=== PATIENT | male | born 1960 | race Hispanic/Latino ===

== ENCOUNTER 2018-01-16 04:18 | Inpatient (IN) | payer BC ==
[~2018-01-16] VITALS: Ht 154.9 cm; Wt 79.8 kg
[~2018-01-16 04:18] MED LIST: AVODART0.5 MG; FLOMAX0.4 MG PO; SIMVASTATIN20 MG; ZOCOR20 MG PO
[2018-01-16] MEDS ORDERED: SODIUM CHLORIDE 0.9% 1000ML 1,000 ML IV STA (04:31)
[2018-01-16] MEDS ORDERED: MORPHINE SULFATE INJ 4 MG/ML INJ IV STA (04:41)
[2018-01-16] MEDS ORDERED: FAMOTIDINE 20 MG/2 ML VIAL IV ONE (04:45)
[2018-01-16] MEDS ORDERED: ONDANSETRON HCL INJ 2 MG/ML VIAL IV ONE (04:45)
[2018-01-16] MEDS ORDERED: DIATRIZOATE MEGL/DIATRIZOA SOD 30 ML BTL PO ONE (04:55)
[2018-01-16] MEDS: ENALAPRILAT IV INJ 1.25 MG/ML VIAL IV STA ×2 (05:01→05:39)
[2018-01-16 05:05] LABS: BASOPHILS # (AUTO) 0.1 (0.0-0.1); BASOPHILS % 0.4 % (0.0-1.0); EOSINOPHILS # (AUTO) 0.1 (0.0-0.4); EOSINOPHILS % 0.5 % (0.0-6.0); HEMATOCRIT 43.3 % (38.2-49.6); HEMOGLOBIN 14.8 g/dL (14.0-18.0); LYMPHOCYTES % 17.8 % (18.0-39.1); MEAN CORPUSCULAR HEMOGLOBIN 29.8 pg (28-32); MEAN CORPUSCULAR HGB CONC 34.2 g/dL (31-35); MEAN CORPUSCULAR VOLUME 87.1 fL (81-99); MONOCYTES # (AUTO) 1.3 (0.2-0.8); MONOCYTES % 7.6 % (4.4-11.3); NEUTROPHILS # (AUTO) 12.4 (2.1-6.9); NEUTROPHILS % 73.2 % (38.7-80.0); PLATELET COUNT 306 x10e3/uL (140-360); RED BLOOD COUNT 4.97 x10e6/uL (4.3-5.7); RED CELL DISTRIBUTION WIDTH 12.9 % (11.7-14.4)
[2018-01-16 05:07] LABS: CLARITY,URINE CLEAR (CLEAR); COLOR,URINE YELLOW (YELLOW); LEUKOCYTE ESTERASE ,URINE NEGATIVE (NEGATIVE)
[2018-01-16 05:08] LABS: BILIRUBIN,URINE NEGATIVE (NEGATIVE); KETONES,URINE NEGATIVE (NEGATIVE); PROTEIN,URINE DIPSTICK NEGATIVE (NEGATIVE); URINE UROBILINOGEN 0.2 mg/dL (0.2 - 1)
[2018-01-16 05:09] LABS: RBC,URINE 0-5 /HPF (0-5); WBC,URINE (MAN) 0-5 /HPF (0-5)
[2018-01-16 05:10] LABS: EPITHELIAL CELLS,URINE FEW /LPF; NITRITE,URINE NEGATIVE (NEGATIVE)
[2018-01-16 05:20] LABS: ALANINE AMINOTRANSFERASE 31 IU/L (0-55); ALBUMIN/GLOBULIN RATIO 1.2 (0.8-2.0); ALKALINE PHOSPHATASE 57 IU/L (40-150); AMYLASE 36 U/L (25-125); ANION GAP 14.5 mmol/L (8-16); BLOOD UREA NITROGEN 12 mg/dL (7-26); BUN/CREATININE RATIO 12 (6-25); CARBON DIOXIDE 28 mmol/L (22-29); CHLORIDE 104 mmol/L (98-107); CREATININE, SERUM 0.98 mg/dL (0.72-1.25); EST GLOMERULAR FILTRATION RATE > 60 ML/MIN (60-); GLUCOSE 100 mg/dL (74-118); LIPASE 15 U/L (8-78); POTASSIUM 4.5 mmol/L (3.5-5.1); SODIUM 142 mmol/L (136-145)
[2018-01-16] MEDS ORDERED: FINASTERIDE5 MG PO (06:10)
[2018-01-16] MEDS ORDERED: SODIUM CHLORIDE 0.9% 50ML 50 ML ONE (06:13)
[2018-01-16] MEDS ORDERED: IOPAMIDOL 370 MG/ML 200 ML INFUS..BTL INJ ONE (06:13)
--- NOTE | 2018-01-16 06:40 | Diagnostic Imaging Report ---
EXAM: CT ABDOMEN/PELVIS W DATE: 01/16/2018 4:41 AM INDICATION: \S\look for appy, diverticulitis,sbo, panreatitis, hernia, rup \[id number] \S\0602 \S\Y COMPARISON: None TECHNIQUE: The abdomen and pelvis were scanned using a multidetector helical scanner. Coronal and sagittal reformations were obtained. CT low dose techniques were utilized, as applicable. IV Contrast: 100 ml Isovue 300/370 FINDINGS: LOWER THORAX: No consolidations LIVER/BILIARY: Homogeneous enhancing 1.2 cm right liver lesion on image 29 and 9 mm caudate lesion on image 19. No ductal dilatation. GALLBLADDER: Cholelithiasis. SPLEEN: Unremarkable PANCREAS: Unremarkable ADRENALS: No nodules KIDNEYS: There is a too small to characterize right inferior renal hypodensity, likely a cyst. No hydronephrosis. GI TRACT: Diverticulosis with marked short segment wall thickening of the distal sigmoid colon and inflammatory changes. Focal 2.4 x 1.2 cm area of fluid and air on image 61 may reflect a large diverticulum or contained fluid collection. VESSELS: Severe atherosclerotic changes. PERITONEUM/RETROPERITONEUM: No free air or fluid LYMPH NODES: No lymphadenopathy REPRODUCTIVE ORGANS/BLADDER: Unremarkable BONES: No suspicious bone lesions. IMPRESSION: 1. Acute sigmoid diverticulitis. Large perisigmoid diverticulum versus contained small abscess. Recommend colonoscopy once the acute episode has resolved. 2. Two homogeneously enhancing liver lesions, which likely reflect FNH is or adenomas. Recommend nonemergent follow-up MRI liver mass protocol for confirmation. Signed by: Dr Lydia Mercedes MD on 01/16/2018 6:37 AM
[2018-01-16] MEDS ORDERED: PROMETHAZINE 25MG/ NS 50ML (IV) IV PRN (07:00)
[2018-01-16] MEDS ORDERED: ENALAPRILAT IV INJ 1.25 MG/ML VIAL IV PRN (07:00)
[2018-01-16] MEDS ORDERED: DIPHENHYDRAMINE HCL INJ 50 MG/ML VIAL IV PRN (07:00)
[2018-01-16] MEDS ORDERED: ZOLPIDEM TARTRATE 5 MG TAB PO PRN (07:00)
[2018-01-16] MEDS ORDERED: ACETAMINOPHEN 325 MG TAB PO PRN (07:00)
[2018-01-16] MEDS: FAMOTIDINE 20 MG/2 ML VIAL IV SCH ×2 (07:59→16:41)
[2018-01-16] MEDS: LEVOFLOXACIN 500MG/D5W 100ML 100 ML IV SCH (07:59)
[2018-01-16] MEDS: SODIUM CHLORIDE 0.9% 1000ML 1,000 ML IV SCH ×3 (07:59→22:04)
[2018-01-16] MEDS: MORPHINE SULFATE INJ 4 MG/ML INJ IV PRN ×4 (08:50→21:27)
[2018-01-16] MEDS: ONDANSETRON HCL INJ 2 MG/ML VIAL IV PRN ×4 (08:50→21:25)
[2018-01-16] MEDS ORDERED: TAMSULOSIN HCL 0.4 MG CAP PO SCH (09:00)
[2018-01-16] MEDS ORDERED: FINASTERIDE 5 MG TAB PO SCH (09:00)
--- NOTE | 2018-01-16 10:56 | Consultation ---
DATE OF CONSULTATION: January 16, 2018 CHIEF COMPLAINT: Abdominal pain. HISTORY OF PRESENT ILLNESS: This patient is a 57-year-old male with 1-day history of pain in the lower abdomen with constipation and obstipation. He denies fever, chills, or nausea, vomiting. He had similar pain approximately 2 weeks ago, which resolved spontaneously. PAST MEDICAL HISTORY: Unremarkable. PAST SURGICAL HISTORY: He has no previous surgery. ALLERGIES: HE HAS NO DRUGS ALLERGY. SOCIAL HABITS: No smoking or alcohol abuse. REVIEW OF SYSTEMS: No chest pain, shortness of breath, or cough. PHYSICAL EXAMINATION: VITAL SIGNS: Stable. He is afebrile. GENERAL: He is awake, alert, in moderate discomfort. HEENT: Sclerae anicteric. NECK: Supple. LUNGS: Clear. HEART: Regular rate and rhythm. ABDOMEN: Soft with guarding tenderness in the suprapubic region and left lower quadrant with some mild rebound. LABORATORY DATA: White cell count 16, hemoglobin of 12. CT scan of the abdomen showed sigmoid diverticulitis with small abscess, 2.2 cm in size. ASSESSMENT: Acute perforated diverticulitis with localized abscess formation. PLAN: IV antibiotics, n.p.o. Will follow patient with you. Thank you. Job#: [id number]
[2018-01-16 11:30] VITALS: BP 141/81
[2018-01-16 13:04] VITALS: BP 141/81
[2018-01-16 13:12] VITALS: BP 141/81
[2018-01-16] MEDS: METRONIDAZOLE 500MG/NS 100ML 100 ML IV SCH ×2 (14:00→22:00)
[2018-01-16 16:00] VITALS: BP 131/79
[2018-01-16 16:50] LABS: CHOL/HDL RATIO 3.7 (3.9-4.7)
[2018-01-16 20:00] VITALS: BP 149/78
[2018-01-16] MEDS: TAMSULOSIN HCL 0.4 MG CAP PO SCH (20:46)
[2018-01-16] MEDS: SIMVASTATIN 20 MG TAB PO SCH (20:46)
[2018-01-16] MEDS: FINASTERIDE 5 MG TAB PO SCH (20:46)
[2018-01-16 20:47] VITALS: BP 149/78
[2018-01-16] MEDS: HEPARIN SOD (PORCINE) 5,000 UNIT/ML VIAL SC SCH (20:47)
--- NOTE | 2018-01-16 21:40 | Consultation ---
DATE OF CONSULTATION: REASON FOR CONSULTATION: Abdominal pain. HISTORY OF PRESENT ILLNESS: This patient who is very pleasant 57-year-old male, who has history of diverticulosis disease, comes in with 1 day of abdominal pain, constipation. There is no fever, no chills, no nausea, no vomiting, no diarrhea, no urgency no frequency, but he said the stool is there is some mucus to it. When he first came to emergency room, his white count was 16.9, hemoglobin 14.8, his sodium 140, potassium of 4.5 creatinine 0.82. He had a CT of the pelvis was done and showed acute sigmoid diverticulitis. PHYSICAL EXAMINATION GENERAL: He is currently alert, oriented, does not seem to be in acute distress. VITALS: Stable. Currently afebrile. HEENT: Not icteric. NECK: Supple. CHEST: Clear. HEART: S1, S2. No murmur. ABDOMEN: Soft. Bowel sounds present. EXTREMITIES: No edema. IMPRESSIONS 1. Diverticulitis. He is currently on Levaquin and Flagyl. Continue the same for the time being. Will see how he is doing clinically. 2. Liver masses, obtain magnetic resonance imaging of the liver. 3. Will follow with you. Job#: [id number]
--- NOTE | 2018-01-16 23:10 | History and Physical ---
Patient of Dr. Sorensen, Dr. Lofton, Dr. Bonilla, Dr. Torres. HISTORY: Charming, but unfortunate 57-year-old gentleman admitted with left lower quadrant abdominal pain, constipation. History of diverticular disease for many years. Apparently, has seen Dr. Bonilla in the past. Apparently has had colonoscopy in 2011. He was found to be hypertensive on admission. PAST MEDICAL HISTORY: He has a history of hyperlipidemia and diverticular disease. PAST SURGICAL HISTORY: No surgical history. FAMILY HISTORY: Noncontributory. SOCIAL HISTORY: Smokes and drinks on weekends. Works as corporate safety manager. ALLERGIES: NO KNOWN ALLERGIES. MEDICATIONS: Include simvastatin, finasteride, and Flomax. REVIEW OF SYSTEMS: Usually active. Denies respiratory, ENT problems. History of BPH. Denies psychiatric problems, skin problems, arthritic problems. PHYSICAL EXAMINATION: GENERAL: This is a well-developed white male, in no acute distress, looking his stated age. VITAL SIGNS: Temperature 97.5, pulse 68, respirations 18, blood pressure 132/ . HEAD: Normocephalic, atraumatic. NECK: Trachea midline. LUNGS: Clear. HEART: Regular rhythm. ABDOMEN: Left lower quadrant tenderness and perivesicular tenderness. IMPRESSION: 1. Recurrent diverticular disease with perforation. 2. Localizing abscess. PLAN: To follow surgical recommendations, IV antibiotics. Thank you for this kind referral. Job#: [id number]
[2018-01-17] VITALS (9 sets, daily range): BP systolic 106–147; BP diastolic 65–96
[2018-01-17] MEDS: SODIUM CHLORIDE 0.9% 1000ML 1,000 ML IV SCH ×5 (00:31→23:50)
[2018-01-17 04:52] LABS: BASOPHILS % 0.3 % (0.0-1.0); EOSINOPHILS # (AUTO) 0.1 (0.0-0.4); EOSINOPHILS % 0.8 % (0.0-6.0); HEMATOCRIT 37.8 % (38.2-49.6); HEMOGLOBIN 13.1 g/dL (14.0-18.0); LYMPHOCYTES # (AUTO) 2.2 (1.0-3.2); LYMPHOCYTES % 19.3 % (18.0-39.1); MEAN CORPUSCULAR HEMOGLOBIN 29.9 pg (28-32); MEAN CORPUSCULAR HGB CONC 34.7 g/dL (31-35); MEAN CORPUSCULAR VOLUME 86.3 fL (81-99); MONOCYTES # (AUTO) 0.9 (0.2-0.8); MONOCYTES % 8.4 % (4.4-11.3); NEUTROPHILS # (AUTO) 7.9 (2.1-6.9); NEUTROPHILS % 70.8 % (38.7-80.0); PLATELET COUNT 245 x10e3/uL (140-360); RED BLOOD COUNT 4.38 x10e6/uL (4.3-5.7)
[2018-01-17 05:16] LABS: ALANINE AMINOTRANSFERASE 17 IU/L (0-55); ALKALINE PHOSPHATASE 49 IU/L (40-150); ANION GAP 11.7 mmol/L (8-16); BLOOD UREA NITROGEN 9 mg/dL (7-26); BUN/CREATININE RATIO 10 (6-25); CALCIUM 8.5 mg/dL (8.4-10.2); CARBON DIOXIDE 25 mmol/L (22-29); CHLORIDE 105 mmol/L (98-107); CREATININE, SERUM 0.88 mg/dL (0.72-1.25); EST GLOMERULAR FILTRATION RATE > 60 ML/MIN (60-); GLUCOSE 92 mg/dL (74-118); POTASSIUM 3.7 mmol/L (3.5-5.1); SODIUM 138 mmol/L (136-145)
[2018-01-17] MEDS: METRONIDAZOLE 500MG/NS 100ML 100 ML IV SCH (05:43)
[2018-01-17] MEDS: LEVOFLOXACIN 500MG/D5W 100ML 100 ML IV SCH (07:00)
[2018-01-17] MEDS: ONDANSETRON HCL INJ 2 MG/ML VIAL IV PRN (08:30)
[2018-01-17] MEDS: MORPHINE SULFATE INJ 4 MG/ML INJ IV PRN ×2 (08:30→08:46)
[2018-01-17] MEDS: FAMOTIDINE 20 MG/2 ML VIAL IV SCH ×2 (08:46→17:00)
[2018-01-17] MEDS: HEPARIN SOD (PORCINE) 5,000 UNIT/ML VIAL SC SCH ×2 (09:00→21:40)
--- NOTE | 2018-01-17 09:07 | Consultation ---
DATE OF CONSULTATION: HISTORY: Arrsn[age]lit-vuxc-old gentleman with past medical history only consistent with hyperlipidemia and diverticulosis, admitted having excruciating abdominal discomfort and bloating with some nausea. On CT scan, found to have diverticulitis and admitted for management. Since his admission, he was started on antibiotic and clear liquid diet, and today patient is feeling better. He remained afebrile. No nausea, no vomiting. Still has not had any bowel movement. Tolerating liquid diet fine. Never had similar episode before, and the last colonoscopy was done in 2011. SOCIAL HISTORY: He smokes and drinks only on weekends. He broadcast journalist. PAST SURGICAL HISTORY: Nil. FAMILY MEDICAL HISTORY: Uncontributory. ALLERGIES: NIL. CURRENT MEDICATIONS: Zofran; morphine; Flagyl and levofloxacin, both are IV; Proscar; Flomax; Zocor; Pepcid; Vasotec; and Ambien. PHYSICAL EXAMINATION: GENERAL: Awake, alert, oriented, hemodynamically stable. VITAL SIGNS: Temperature 98.4, pulse 78, respiratory rate 18, blood pressure 130/65. HEENT: Normal sclerae. NECK: Supple. LUNGS: Clear to auscultation. HEART: Regular-regular rhythm. No added sounds. ABDOMEN: Soft, nondistended. No acute sign. Not tender. Bowel sounds quiet. EXTREMITIES: Unremarkable. CENTRAL NERVOUS SYSTEM: Motor function intact. LAB: White cell count today 11, down from 16 yesterday; hemoglobin 13; hematocrit 37; platelets 245,000. Comprehensive panel normal. Amylase normal. Lipase normal. Urinalysis normal. CT scan with contrast showed acute diverticulitis with possible small abscess. Also possibility of either focal nodular hyperplasia or adenoma of his liver. PLAN: Continue his liquid diet. Continue the antibiotic. May be in a day or two will start increasing his diet slowly. Advised him need to repeat his colonoscopy as an outpatient in couple of weeks. As far as the liver lesions, we have to do specific MRI later on to see if we can identify what type of lesion it is. His liver functions as I mentioned earlier are normal. Job#: [id number]
[2018-01-17] MEDS: MEROPENEM 500 MG VIAL IV SCH ×2 (10:00→17:42)
[2018-01-17] MEDS ORDERED: MEROPENEM 500MG 500 MG in SODIUM CHLORIDE 0.9% 50ML 50 ML IV SCH (14:00)
[2018-01-17] MEDS: TAMSULOSIN HCL 0.4 MG CAP PO SCH (21:40)
[2018-01-17] MEDS: SIMVASTATIN 20 MG TAB PO SCH (21:40)
[2018-01-17] MEDS: FINASTERIDE 5 MG TAB PO SCH (21:40)
[2018-01-18] VITALS (8 sets, daily range): BP systolic 128–148; BP diastolic 74–97
[2018-01-18] MEDS: MEROPENEM 500 MG VIAL IV SCH ×3 (01:47→16:58)
[2018-01-18] MEDS: FAMOTIDINE 20 MG/2 ML VIAL IV SCH ×2 (08:30→16:58)
[2018-01-18] MEDS: HEPARIN SOD (PORCINE) 5,000 UNIT/ML VIAL SC SCH ×2 (08:30→21:25)
[2018-01-18] MEDS ORDERED: GADOBENATE DIMEGLUMINE 1 ML IV ONE (11:33)
--- NOTE | 2018-01-18 13:05 | Diagnostic Imaging Report ---
EXAM: MRI of the abdomen with and without contrast. INDICATION: Abdominal pain. COMPARISON: CT abdomen and pelvis dated 01/16/2018. TECHNIQUE: Multiplanar and multisequence imaging was performed of the abdomen. T1 and T2-weighted images were obtained with and without contrast. T1-weighted in and [id number] , Dynamic, post gadolinium T1-weighted spoiled gradient echo scans. IV Contrast: 15 cc of MultiHance Oral Contrast: None. Medications: None DISCUSSION: LOWER THORAX: Unremarkable. HEPATOBILIARY: T2 hyperintense, T1 hypointense 1.4 x 1.4 cm right hepatic lobe (series 6, image 27) and 1.4 x 1.1 cm caudate lobe (series 6, image 21) lesions, demonstrating arterial enhancement with persistent enhancement throughout the portal venous and delayed phases. No evidence of diffusion restriction. No biliary ductal dilation. GALLBLADDER: 2.6 cm gallstone. No wall thickening. SPLEEN: No splenomegaly. PANCREAS: No focal masses or ductal dilatation. ADRENALS: No adrenal nodules KIDNEYS/URETERS: Kidneys enhance symmetrically. No hydronephrosis. No renal mass. 0.9 cm anterior right lower pole renal cyst. GI TRACT: Visualized bowel loops are unremarkable. No evidence of bowel obstruction. LYMPH NODES: No lymphadenopathy. VESSELS: Unremarkable. PERITONEUM / RETROPERITONEUM: No free air or fluid. BONES: Unremarkable. SOFT TISSUES: Unremarkable. IMPRESSION: 1. Hyperenhancing hepatic lesions, without evidence of washout, are probably flash filling hemangiomas versus focal nodular hyperplasia. Recommend follow-up with MRI in 6 months to ensure stability. 2. Cholelithiasis without evidence of cholecystitis. Signed by: Dr. Gonzalez Marie MD on 01/18/2018 1:02 PM
[2018-01-18] MEDS: TAMSULOSIN HCL 0.4 MG CAP PO SCH (21:24)
[2018-01-18] MEDS: FINASTERIDE 5 MG TAB PO SCH (21:24)
[2018-01-18] MEDS: SIMVASTATIN 20 MG TAB PO SCH (21:24)
[2018-01-18] MEDS: LACTOBACILLUS ACIDOPHILUS CAPSULE PO SCH (21:24)
[2018-01-19] VITALS: BP 126/69
[2018-01-19] MEDS: MEROPENEM 500 MG VIAL IV SCH ×2 (02:25→10:14)
[2018-01-19 04:00] VITALS: BP 115/66
[2018-01-19 05:05] LABS: BASOPHILS % 0.5 % (0.0-1.0); EOSINOPHILS # (AUTO) 0.2 (0.0-0.4); EOSINOPHILS % 2.8 % (0.0-6.0); HEMATOCRIT 40.6 % (38.2-49.6); HEMOGLOBIN 14.1 g/dL (14.0-18.0); LYMPHOCYTES # (AUTO) 2.3 (1.0-3.2); LYMPHOCYTES % 30.2 % (18.0-39.1); MEAN CORPUSCULAR HEMOGLOBIN 29.6 pg (28-32); MEAN CORPUSCULAR HGB CONC 34.7 g/dL (31-35); MEAN CORPUSCULAR VOLUME 85.1 fL (81-99); MONOCYTES # (AUTO) 0.7 (0.2-0.8); MONOCYTES % 9.5 % (4.4-11.3); NEUTROPHILS # (AUTO) 4.3 (2.1-6.9); NEUTROPHILS % 56.3 % (38.7-80.0); PLATELET COUNT 314 x10e3/uL (140-360); RED BLOOD COUNT 4.77 x10e6/uL (4.3-5.7); RED CELL DISTRIBUTION WIDTH 12.5 % (11.7-14.4)
[2018-01-19 05:31] LABS: ANION GAP 13.9 mmol/L (8-16); BLOOD UREA NITROGEN 9 mg/dL (7-26); BUN/CREATININE RATIO 11 (6-25); CALCIUM 9.2 mg/dL (8.4-10.2); CARBON DIOXIDE 23 mmol/L (22-29); CHLORIDE 104 mmol/L (98-107); CREATININE, SERUM 0.82 mg/dL (0.72-1.25); EST GLOMERULAR FILTRATION RATE > 60 ML/MIN (60-); GLUCOSE 100 mg/dL (74-118); POTASSIUM 3.9 mmol/L (3.5-5.1); SODIUM 137 mmol/L (136-145)
--- NOTE | 2018-01-19 07:38 | Progress Note ---
DATE: January 18, 2018 Mr. Mariano is doing much better. When I interviewed him, he was sitting on a chair and asymptomatic. Had no GI symptoms, such as abdominal pain, nausea, vomiting, or fever. He is tolerating his clear liquid diet well, and he is asking to advance his diet. He has just passed stool, liquid. On exam, he is hemodynamically stable and afebrile. My plan is to advance his diet and start him on probiotic. As far as liver lesions, will schedule for MRI with specific material, Evoist, to identify whether the lesion is truly a focal nodule or hyperplasia. His liver enzymes are normal. Job#: [id number] MEGHAN
[2018-01-19 08:00] VITALS: BP 136/70
[2018-01-19] MEDS: FAMOTIDINE 20 MG/2 ML VIAL IV SCH (10:14)
[2018-01-19] MEDS: HEPARIN SOD (PORCINE) 5,000 UNIT/ML VIAL SC SCH (10:14)
[2018-01-19] MEDS: LACTOBACILLUS ACIDOPHILUS CAPSULE PO SCH ×2 (10:14→15:00)
[2018-01-19 12:00] VITALS: BP 125/91
[2018-01-19 16:00] VITALS: BP 147/93
[2018-01-19 16:30] VITALS: BP 147/93
--- NOTE | 2018-01-19 20:37 | Discharge Summary ---
FINAL DIAGNOSES 1. Diverticulitis. 2. Abdominal pain. 3. Hypertension. ADMISSION HISTORY AND HOSPITAL COURSE: Mr. Mariano is a 57-year-old male who was admitted with diverticulitis. The patient was started on IV antibiotics. ID and surgery were consulted. There was a question for abdominal abscess. MRI of the abdomen was done and ID evaluated it and recommended that there is no abscess. The patient was treated with IV antibiotics, started feeling better, and GI and surgery cleared the patient to be discharged. The patient will be discharged home to follow up with primary care physician. CHAYITO ALLEN MD Job#: [id number] GE
--- NOTE | 2018-01-19 22:33 | Progress Note ---
DATE: January 19, 2018 Mr. Harry is doing very well. He tolerated soft diet for breakfast. He is asymptomatic, afebrile. Will go ahead and discharge him home to continue soft diet at home. Will see him in about a week in the office for followup. He still have to get an MRI with Eovist material to verify the nature of the lesion of his liver. Job#: [id number] CQ
== END 2018-01-19 16:45 | disposition home or self-care (01) | DRG 872 ==
LOC: ER 04:18 → ERHOLD 07:17 → MED/SURG2 11:00
PROVIDERS: ADMIT Internal Medicine; ATTEND Internal Medicine
DX: A41.9 Sepsis, unspecified organism (principal); K57.80 Diverticulitis of intestine, part unspecified, with perforation and abscess without bleeding; R16.0 Hepatomegaly, not elsewhere classified; B19.20 Unspecified viral hepatitis C without hepatic coma; E78.5 Hyperlipidemia, unspecified; Z72.0 Tobacco use; I10 Essential (primary) hypertension
CPT/HCPCS: 36415; 74177; 74183; 80048; 80053; 80061; 81001; 82150; 83690; 85025; 93005; 99284; J1644; J1956; J2185; J2270; J2405; J7030; Q9967

== ENCOUNTER 2021-09-14 09:38 | Emergency (ER) | payer BC ==
[~2021-09-14] VITALS: Ht 154.9 cm; Wt 79.8 kg
[~2021-09-14 09:38] MED LIST changes: +FINASTERIDE5 MG PO
[2021-09-14] MEDS ORDERED: KETOROLAC TROMETHAMINE 10 MG TAB PO STA (09:47)
[2021-09-14] MEDS ORDERED: IBUPROFEN600 MG PO (09:54)
[2021-09-14] MEDS ORDERED: CYCLOBENZAPRINE5 MG PO (09:54)
[2021-09-14] MEDS ORDERED: CYCLOBENZAPRINE HCL 10 MG TAB PO ONE (10:00)
[2021-09-14] MEDS ORDERED: KETOROLAC TROMETHAMINE 30 MG/ML VIAL IM ONE (10:00)
[2021-09-14] MEDS ORDERED: KETOROLAC TROMETHAMINE 60 MG/2 ML VIAL ONE (10:06)
== END 2021-09-14 10:21 | disposition home or self-care (01) ==
LOC: ER 09:55
DX: M43.6 Torticollis (principal); I10 Essential (primary) hypertension; Z87.19 Personal history of other diseases of the digestive system
CPT/HCPCS: 99282; J1885